=== PATIENT | female | born 1985 | race Caucasian/White ===

== ENCOUNTER 2018-09-26 12:23 | Emergency (ER) | payer OTHER ==
[~2018-09-26] VITALS: Ht 165.1 cm; Wt 79.4 kg
[2018-09-26 12:30] VITALS: BP 113/72; Ht 165.1 cm; Wt 79.4 kg
== END 2018-09-26 13:27 | disposition other institution (70) ==
LOC: ED 12:23
DX: M32.8 Other forms of systemic lupus erythematosus (principal); Z88.2 Allergy status to sulfonamides; Z90.89 Acquired absence of other organs; Z98.890 Other specified postprocedural states; Z88.8 Allergy status to other drugs, medicaments and biological substances
CPT/HCPCS: J1885

== ENCOUNTER 2018-09-26 12:23 | Emergency (ER) | payer OTHER | END 2018-09-26 13:27 | disposition other institution (70) | LOC: ED 12:23 | DX: Z02.89 Encounter for other administrative examinations (principal) ==